=== PATIENT | male | born 1965 | race Caucasian/White ===

== ENCOUNTER 2018-04-21 05:55 | Inpatient (IN) | payer BC, OTHER ==
[2018-04-21] MEDS: LACTATED RINGER'S 1,000 ML IV (06:23)
[2018-04-21] MEDS ORDERED: CEFAZOLIN 1 GM INJ ×2 (07:00→07:38)
[2018-04-21] MEDS ORDERED: EPHEDrine SULFATE 50 MG/5 ML SYG (07:00)
[2018-04-21] MEDS ORDERED: HEPARIN 1000 UNITS/ML 10 ML INJ (07:08)
[2018-04-21] MEDS ORDERED: ROCURONIUM 50 MG INJ ×2 (07:38→09:32)
[2018-04-21] MEDS ORDERED: PROPOFOL 20 ML (07:38)
[2018-04-21] MEDS ORDERED: MIDAZOLAM 1 MG/ML 2 ML INJ (07:39)
[2018-04-21] MEDS ORDERED: HYDROmorphONE 2 MG/ML SYG (07:39)
[2018-04-21] MEDS ORDERED: DIPHENHYDRAMINE 50 MG INJ IV (08:00)
[2018-04-21] MEDS ORDERED: METOCLOPRAMIDE 10 MG INJ IV (08:00)
[2018-04-21] MEDS ORDERED: ONDANSETRON 4 MG INJ IV (08:00)
[2018-04-21] MEDS ORDERED: HYDROmorphONE 1 MG/5 ML IV SYRINGE IV ×3 (08:00)
[2018-04-21] MEDS ORDERED: LABETALOL HCL 20MG INJ IV (08:00)
[2018-04-21] MEDS ORDERED: FENTAnyl 50 MCG/ML VIAL IV ×2 (08:00)
[2018-04-21] MEDS ORDERED: hydrALAzine 20 MG INJ IV (08:00)
[2018-04-21] MEDS ORDERED: OXYCODONE/ACETAMINOPHEN (5/325) TAB PO ×2 (08:00)
[2018-04-21] MEDS ORDERED: EPHEDrine SULFATE 50 MG/5 ML SYG IV (08:00)
[2018-04-21] MEDS: GELATIN SIZE 100 SPONGE (09:06)
[2018-04-21] MEDS: THROMBIN 5000 UNIT VIAL (09:06)
[2018-04-21] MEDS: CEFAZOLIN 1 GM INJ (09:06)
[2018-04-21] MEDS: HEMOSTATIC MATRIX SYG ZFS ×2 (09:06→09:59)
[2018-04-21] MEDS ORDERED: METOCLOPRAMIDE 10 MG INJ (09:09)
[2018-04-21] MEDS ORDERED: ONDANSETRON 4 MG INJ (09:09)
[2018-04-21] MEDS ORDERED: DEXAMETHASONE 4 MG/ML 1 ML INJ (09:09)
[2018-04-21] MEDS ORDERED: hydrALAzine 20 MG INJ (09:26)
[2018-04-21] MEDS: ACETAMINOPHEN 1000MG/100ML IV 100 ML IVPB (09:30)
[2018-04-21] MEDS: THROMBIN 5000 UNIT VIAL TOP (09:59)
[2018-04-21] MEDS ORDERED: ACETAMINOPHEN 325 MG TAB PO (10:00)
[2018-04-21] MEDS ORDERED: NACL 0.9% 3 ML SYG IV (10:00)
[2018-04-21] MEDS ORDERED: NALOXONE (0.4 MG/ML) INJ IV (10:00)
[2018-04-21] MEDS ORDERED: PHENYLephrine (100 MCG/ML) 5ML SYG (10:09)
[2018-04-21] MEDS ORDERED: ALBUMIN HUMAN 5% 250 ML (10:29)
[2018-04-21] MEDS ORDERED: SUGAMMADEX SODIUM 200 MG/2 ML VIAL IV (11:14)
[2018-04-21] MEDS: FENTAnyl 50 MCG/ML VIAL IV (12:30)
[2018-04-21] MEDS: MEPERIDINE 25 MG INJ IV (13:36)
[2018-04-21] MEDS: NS + KCL 20 MEQ 1,000 ML IV ×2 (14:34→20:00)
[2018-04-21] MEDS: CEFAZOLIN 2 GM/50 ML (PMX) 50 ML IVPB ×2 (14:34→22:06)
[2018-04-21] MEDS: HYDROCODONE/APAP (10/325) TAB PO (16:53)
[2018-04-21] MEDS: HYDROmorphONE 1 MG/ML SYG IV (18:49)
[2018-04-21] MEDS: FAMOTIDINE 20 MG TAB PO (18:49)
[2018-04-21] MEDS: GABAPENTIN 300 MG CAP PO (21:37)
[2018-04-22 05:13] LABS: ADD MAN DIFF? NO
[2018-04-22 05:19] LABS: WHITE BLOOD COUNT 11.9 10^3/ul (4.8-10.8)
[2018-04-22 05:19] LABS: BASOPHILS % 0.1 % (0.0-2.0); HEMATOCRIT 36.7 % (42.0-52.0); HEMOGLOBIN 12.3 g/dl (14.0-18.0); LYMPHOCYTES # 1.1 10^3/ul (0.8-2.9); LYMPHOCYTES % 9.1 % (15.0-51.0); MEAN CORPUSCULAR HEMOGLOBIN 29.6 pg (29.0-33.0); MEAN CORPUSCULAR HGB CONC 33.5 g/dl (32.0-37.0); MEAN CORPUSCULAR VOLUME 88.2 fl (82.0-101.0); MEAN PLATELET VOLUME 11.7 fl (7.4-10.4); MONOCYTE # 0.9 10^3/ul (0.3-0.9); MONOCYTES % 7.2 % (0.0-11.0); NEUTROPHIL # 9.9 10^3/ul (1.6-7.5); NEUTROPHILS % 83.2 % (39.0-77.0); PLATELET COUNT 179 10^3/UL (140-415); RED BLOOD COUNT 4.16 10^6/ul (4.70-6.10); RED CELL DISTRIBUTION WIDTH 13.5 % (11.5-14.5)
[2018-04-22] MEDS: NS + KCL 20 MEQ 1,000 ML IV ×2 (05:19→16:37)
[2018-04-22] MEDS: CEFAZOLIN 2 GM/50 ML (PMX) 50 ML IVPB ×3 (05:19→22:18)
[2018-04-22 06:00] LABS: ANION GAP 7 (5-13); BLOOD UREA NITROGEN 14 mg/dl (7-20); CALCIUM 8.3 mg/dl (8.4-10.2); CARBON DIOXIDE 24 mmol/L (21-31); CHLORIDE 112 mmol/L (97-110); CREATININE 0.76 mg/dl (0.61-1.24); Estimated GFR > 60 mL/min (>60); GLUCOSE 125 mg/dl (70-220); POTASSIUM 4.2 mmol/L (3.5-5.1); SODIUM 143 mmol/L (135-144)
[2018-04-22] MEDS: HYDROmorphONE 1 MG/ML SYG IV ×3 (08:37→19:30)
[2018-04-22] MEDS: FAMOTIDINE 20 MG TAB PO (08:58)
[2018-04-22] MEDS: ATENOLOL 50 MG TAB PO (08:58)
[2018-04-22] MEDS: GABAPENTIN 300 MG CAP PO ×2 (08:59→22:18)
[2018-04-22] MEDS: HYDROCHLOROTHIAZIDE 12.5 MG CAP PO (08:59)
[2018-04-22] MEDS: AMLODIPINE 10 MG TAB PO (08:59)
[2018-04-22] MEDS: LOSARTAN 50 MG TAB PO (09:00)
[2018-04-22] MEDS ORDERED: LIDOCAINE 2% (SDV) 5 ML INJ (20:03)
[2018-04-22] MEDS ORDERED: PROPOFOL 20 ML (20:03)
[2018-04-22] MEDS ORDERED: CEFAZOLIN 1 GM INJ (20:18)
[2018-04-22] MEDS ORDERED: DEXAMETHASONE 4 MG/ML 1 ML INJ (20:33)
[2018-04-22] MEDS ORDERED: ONDANSETRON 4 MG INJ (20:33)
[2018-04-22] MEDS: THROMBIN 5000 UNIT VIAL (21:02)
[2018-04-22] MEDS: GELATIN SIZE 100 SPONGE (21:02)
[2018-04-22] MEDS: ROPIVACAINE 0.5 % 30 ML VIAL ×2 (21:03)
[2018-04-22] MEDS ORDERED: SUGAMMADEX SODIUM 200 MG/2 ML VIAL IV (21:47)
[2018-04-22] MEDS ORDERED: HYDROmorphONE 0.5 MG/0.5 ML SYG IV (22:00)
[2018-04-22] MEDS ORDERED: LABETALOL HCL 20MG INJ IV (22:00)
[2018-04-22] MEDS ORDERED: ONDANSETRON 4 MG INJ IV (22:00)
[2018-04-23] MEDS: NS + KCL 20 MEQ 1,000 ML IV ×3 (01:04→21:44)
[2018-04-23] MEDS: HYDROmorphONE 1 MG/ML SYG IV ×3 (04:13→11:00)
[2018-04-23] MEDS: CEFAZOLIN 2 GM/50 ML (PMX) 50 ML IVPB ×3 (05:00→21:44)
[2018-04-23 05:48] LABS: ADD MAN DIFF? NO
[2018-04-23 06:01] LABS: WHITE BLOOD COUNT 13.3 10^3/ul (4.8-10.8)
[2018-04-23 06:01] LABS: BASOPHILS % 0.1 % (0.0-2.0); HEMATOCRIT 37.9 % (42.0-52.0); HEMOGLOBIN 12.5 g/dl (14.0-18.0); LYMPHOCYTES # 0.7 10^3/ul (0.8-2.9); LYMPHOCYTES % 4.9 % (15.0-51.0); MEAN CORPUSCULAR HEMOGLOBIN 29.7 pg (29.0-33.0); MEAN PLATELET VOLUME 12.1 fl (7.4-10.4); MONOCYTE # 0.6 10^3/ul (0.3-0.9); MONOCYTES % 4.5 % (0.0-11.0); NEUTROPHILS % 90.2 % (39.0-77.0); PLATELET COUNT 177 10^3/UL (140-415); RED BLOOD COUNT 4.21 10^6/ul (4.70-6.10); RED CELL DISTRIBUTION WIDTH 13.6 % (11.5-14.5)
[2018-04-23 06:27] LABS: ANION GAP 5 (5-13); BLOOD UREA NITROGEN 13 mg/dl (7-20); CALCIUM 8.3 mg/dl (8.4-10.2); CARBON DIOXIDE 26 mmol/L (21-31); CHLORIDE 108 mmol/L (97-110); CREATININE 0.85 mg/dl (0.61-1.24); Estimated GFR > 60 mL/min (>60); GLUCOSE 148 mg/dl (70-220); POTASSIUM 4.2 mmol/L (3.5-5.1); SODIUM 139 mmol/L (135-144)
[2018-04-23] MEDS: FAMOTIDINE 20 MG TAB PO (08:47)
[2018-04-23] MEDS: ATENOLOL 50 MG TAB PO (08:47)
[2018-04-23] MEDS: LOSARTAN 50 MG TAB PO (08:49)
[2018-04-23] MEDS: GABAPENTIN 300 MG CAP PO ×2 (08:50→20:17)
[2018-04-23] MEDS: AMLODIPINE 10 MG TAB PO (08:50)
[2018-04-23] MEDS: HYDROCHLOROTHIAZIDE 12.5 MG CAP PO (08:50)
[2018-04-23] MEDS: HYDROCODONE/APAP (10/325) TAB PO ×2 (14:08→19:42)
[2018-04-24] MEDS: HYDROmorphONE 1 MG/ML SYG IV (01:03)
[2018-04-24 05:05] LABS: ADD MAN DIFF? NO; BASOPHILS % 0.1 % (0.0-2.0); EOSINOPHILS % 0.2 % (0.0-7.0); HEMATOCRIT 36.5 % (42.0-52.0); HEMOGLOBIN 11.9 g/dl (14.0-18.0); LYMPHOCYTES # 1.6 10^3/ul (0.8-2.9); LYMPHOCYTES % 14.2 % (15.0-51.0); MEAN CORPUSCULAR HEMOGLOBIN 29.8 pg (29.0-33.0); MEAN CORPUSCULAR HGB CONC 32.6 g/dl (32.0-37.0); MEAN CORPUSCULAR VOLUME 91.5 fl (82.0-101.0); MEAN PLATELET VOLUME 12.1 fl (7.4-10.4); MONOCYTE # 0.7 10^3/ul (0.3-0.9); MONOCYTES % 6.7 % (0.0-11.0); NEUTROPHIL # 8.6 10^3/ul (1.6-7.5); NEUTROPHILS % 78.4 % (39.0-77.0); PLATELET COUNT 168 10^3/UL (140-415); RED BLOOD COUNT 3.99 10^6/ul (4.70-6.10); RED CELL DISTRIBUTION WIDTH 13.1 % (11.5-14.5)
[2018-04-24] MEDS: HYDROCODONE/APAP (10/325) TAB PO ×4 (05:15→19:25)
[2018-04-24] MEDS: CEFAZOLIN 2 GM/50 ML (PMX) 50 ML IVPB ×2 (05:15→13:59)
[2018-04-24 06:20] LABS: ANION GAP 6 (5-13); BLOOD UREA NITROGEN 13 mg/dl (7-20); CALCIUM 8.4 mg/dl (8.4-10.2); CARBON DIOXIDE 31 mmol/L (21-31); CHLORIDE 104 mmol/L (97-110); CREATININE 0.74 mg/dl (0.61-1.24); Estimated GFR > 60 mL/min (>60); GLUCOSE 104 mg/dl (70-220); POTASSIUM 3.9 mmol/L (3.5-5.1); SODIUM 141 mmol/L (135-144)
[2018-04-24] MEDS: FAMOTIDINE 20 MG TAB PO (08:56)
[2018-04-24] MEDS: GABAPENTIN 300 MG CAP PO ×2 (08:56→20:49)
[2018-04-24] MEDS: ATENOLOL 50 MG TAB PO (08:57)
[2018-04-24] MEDS: LOSARTAN 50 MG TAB PO (09:00)
[2018-04-24] MEDS: AMLODIPINE 10 MG TAB PO (09:00)
[2018-04-24] MEDS: HYDROCHLOROTHIAZIDE 12.5 MG CAP PO (09:00)
[2018-04-24] MEDS: NS + KCL 20 MEQ 1,000 ML IV ×2 (09:01→14:03)
[2018-04-25] MEDS: NS + KCL 20 MEQ 1,000 ML IV (00:44)
[2018-04-25] MEDS: HYDROCODONE/APAP (10/325) TAB PO ×3 (00:47→19:44)
[2018-04-25 05:26] LABS: ADD MAN DIFF? NO
[2018-04-25 05:33] LABS: BASOPHILS % 0.1 % (0.0-2.0); EOSINOPHILS # 0.1 10^3/ul (0.0-0.5); EOSINOPHILS % 0.7 % (0.0-7.0); HEMATOCRIT 36.2 % (42.0-52.0); HEMOGLOBIN 11.9 g/dl (14.0-18.0); LYMPHOCYTES # 1.8 10^3/ul (0.8-2.9); LYMPHOCYTES % 20.6 % (15.0-51.0); MEAN CORPUSCULAR HEMOGLOBIN 29.7 pg (29.0-33.0); MEAN CORPUSCULAR HGB CONC 32.9 g/dl (32.0-37.0); MEAN CORPUSCULAR VOLUME 90.3 fl (82.0-101.0); MEAN PLATELET VOLUME 11.7 fl (7.4-10.4); MONOCYTE # 0.6 10^3/ul (0.3-0.9); MONOCYTES % 7.3 % (0.0-11.0); NEUTROPHIL # 6.2 10^3/ul (1.6-7.5); PLATELET COUNT 202 10^3/UL (140-415); RED BLOOD COUNT 4.01 10^6/ul (4.70-6.10); RED CELL DISTRIBUTION WIDTH 12.7 % (11.5-14.5)
[2018-04-25 05:33] LABS: WHITE BLOOD COUNT 8.7 10^3/ul (4.8-10.8)
[2018-04-25 06:06] LABS: ANION GAP 8 (5-13); BLOOD UREA NITROGEN 13 mg/dl (7-20); CALCIUM 8.2 mg/dl (8.4-10.2); CARBON DIOXIDE 27 mmol/L (21-31); CHLORIDE 106 mmol/L (97-110); CREATININE 0.66 mg/dl (0.61-1.24); Estimated GFR > 60 mL/min (>60); GLUCOSE 97 mg/dl (70-220); POTASSIUM 3.9 mmol/L (3.5-5.1); SODIUM 141 mmol/L (135-144)
[2018-04-25] MEDS: HYDROCHLOROTHIAZIDE 12.5 MG CAP PO (09:55)
[2018-04-25] MEDS: ATENOLOL 50 MG TAB PO (09:55)
[2018-04-25] MEDS: GABAPENTIN 300 MG CAP PO ×2 (09:56→19:44)
[2018-04-25] MEDS: LOSARTAN 50 MG TAB PO (09:57)
[2018-04-25] MEDS: FAMOTIDINE 20 MG TAB PO (09:57)
[2018-04-25] MEDS: AMLODIPINE 10 MG TAB PO (09:57)
[2018-04-25] MEDS: HYDROmorphONE 1 MG/ML SYG IV ×2 (13:36→17:27)
[2018-04-26] MEDS: HYDROmorphONE 1 MG/ML SYG IV (01:10)
[2018-04-26] MEDS: HYDROCODONE/APAP (10/325) TAB PO ×2 (06:46→20:40)
[2018-04-26] MEDS: GABAPENTIN 300 MG CAP PO ×2 (10:13→20:40)
[2018-04-26] MEDS: HYDROCHLOROTHIAZIDE 12.5 MG CAP PO (10:14)
[2018-04-26] MEDS: LOSARTAN 50 MG TAB PO (10:14)
[2018-04-26] MEDS: FAMOTIDINE 20 MG TAB PO (10:14)
[2018-04-26] MEDS: ATENOLOL 50 MG TAB PO (10:15)
[2018-04-26] MEDS: AMLODIPINE 10 MG TAB PO (10:15)
[2018-04-27] MEDS: HYDROCODONE/APAP (10/325) TAB PO (01:37)
[2018-04-27] MEDS: GABAPENTIN 300 MG CAP PO (11:20)
[2018-04-27] MEDS: LOSARTAN 50 MG TAB PO (11:21)
[2018-04-27] MEDS: HYDROCHLOROTHIAZIDE 12.5 MG CAP PO (11:21)
[2018-04-27] MEDS: ATENOLOL 50 MG TAB PO (11:22)
[2018-04-27] MEDS: FAMOTIDINE 20 MG TAB PO (11:22)
[2018-04-27] MEDS: AMLODIPINE 10 MG TAB PO (11:22)
[2018-04-27] MEDS: AL HYDROX/MG HYDROX/SIMETH 30 ML CUP PO (11:27)
== END 2018-04-27 17:25 | disposition home health service (06) | DRG 455 ==
LOC: REC 05:55 → ICU 11:45 → MS1 04-23 20:45
PROVIDERS: Neurological Surgery
PROC: 0SG10A0 Fusion of 2 or more Lumbar Vertebral Joints with Interbody Fusion Device, Anterior Approach, Anterior Column, Open Approach (ICD-10-PCS; principal; 2018-04-21 07:30)
PROC: 0SG30A0 Fusion of Lumbosacral Joint with Interbody Fusion Device, Anterior Approach, Anterior Column, Open Approach (ICD-10-PCS; 2018-04-21 07:30)
PROC: 0SB20ZZ Excision of Lumbar Vertebral Disc, Open Approach (ICD-10-PCS; 2018-04-21 07:30)
PROC: 0SB40ZZ Excision of Lumbosacral Disc, Open Approach (ICD-10-PCS; 2018-04-21 07:30)
PROC: 0SG10K1 Fusion of 2 or more Lumbar Vertebral Joints with Nonautologous Tissue Substitute, Posterior Approach, Posterior Column, Open Approach (ICD-10-PCS; 2018-04-21 08:17)
PROC: 0SG30K1 Fusion of Lumbosacral Joint with Nonautologous Tissue Substitute, Posterior Approach, Posterior Column, Open Approach (ICD-10-PCS; 2018-04-21 08:17)
DX: M47.26 Other spondylosis with radiculopathy, lumbar region (principal); M51.17 Intervertebral disc disorders with radiculopathy, lumbosacral region; I10 Essential (primary) hypertension; E78.5 Hyperlipidemia, unspecified; E66.9 Obesity, unspecified; Z68.31 Body mass index [BMI] 31.0-31.9, adult
CPT/HCPCS: 72110; 72114; 72131; 80048; 85025; 86850; 86900; 86901; 86920; 87081; 88304; 88311; 97110; 97116; 97163; 97530